=== PATIENT | female | born 1945 | race Caucasian/White ===

== ENCOUNTER 2017-05-18 14:20 | Emergency (ER) | payer OTHER ==
[2017-05-18 14:22] VITALS: BP 183/77; PULSE 70; RESP 24; TEMP 98.4; O2SAT 96
[2017-05-18] MEDS ORDERED: methylPREDNISolone SOD SUCC 125 MG/2 ML VIAL IV PUSH ONE (14:45)
[2017-05-18] MEDS ORDERED: SODIUM CHLORIDE 0.9% FLUSH 10 ML FLUSH IVF PRN (14:45)
--- NOTE | 2017-05-18 14:48 | PD ---
HPI Chief Complaint: Respiratory Distress Time Seen by Provider: 14:43 Travel History International Travel<30 days: No Contact w/Intl Traveler<30days: No Traveled to known affect area: No History of Present Illness HPI 71-year-old female with history of asthma presents for evaluation of wheezing, cough, congestion. Symptoms started 2-3 days ago. The cough is productive with green sputum. Symptoms are only mildly improved with her prescribed Flovent and albuterol inhalers. She reports that she is currently on vacation from [place]. Denies fevers or chills, chest pain, abdominal pain, leg swelling. She has no other complaints at this time. [facility] Past Medical History Asthma: Yes Social History Alcohol Use: No Tobacco Use: No Substance Use: No Allergies-Medications (Allergen,Severity, Reaction): Coded Allergies: aspirin (Verified Allergy, Severe, 05/18/17) Reported Meds & Prescriptions Reported Meds & Active Scripts Active Doxycycline Hyclate 100 Mg Cap 100 Mg PO BID Medrol Dosepak (Methylprednisolone) 4 Mg Dspk 4 Mg PO DIRECTED Per Pharmacist direction Reported Omeprazole 20 Mg Tab 20 Mg PO DAILY Losartan-Hydrochlorothiazide 100-12.5 Mg Tab 1 Tab PO DAILY Citalopram (Citalopram Hydrobromide) 10 Mg Tab 10 Mg PO DAILY Zocor (Simvastatin) 20 Mg Tab 80 Mg PO HS Synthroid (Levothyroxine Sodium) 50 Mcg Tab 50 Mcg PO DAILY Review of Systems Except as stated in HPI: all other systems reviewed are Neg Physical Exam Narrative GENERAL: Well-developed well-nourished female in no acute distress SKIN: Warm and dry. HEAD: Atraumatic. Normocephalic. EYES: Pupils equal and round. No scleral icterus. No injection or drainage. ENT: No nasal bleeding or discharge. Mucous membranes pink and moist. NECK: Trachea midline. No JVD. CARDIOVASCULAR: Regular rate and rhythm. No murmur appreciated. RESPIRATORY: No accessory muscle use. Inspiratory and expiratory wheezing noted bilaterally. GASTROINTESTINAL: Abdomen soft, non-tender, nondistended. Hepatic and splenic margins not palpable. MUSCULOSKELETAL: No obvious deformities. No clubbing. No cyanosis. No edema. NEUROLOGICAL: Awake and alert. No obvious cranial nerve deficits. Motor grossly within normal limits. Normal speech. PSYCHIATRIC: Appropriate mood and affect; insight and judgment normal. Data Data Last Documented VS Vital Signs Date Time Temp Pulse Resp B/P (MAP) Pulse Ox O2 Delivery O2 Flow Rate FiO2 05/18/17 15:40 99 Nasal Cannula 5.00 05/18/17 14:22 98.4 70 24 183/77 (112) Orders Orders Complete Blood Count With Diff (05/18/17 14:43) Basic Metabolic Panel (Bmp) (05/18/17 14:43) Chest, Single Ap (05/18/17 14:43) Sodium Chloride 0.9% Flush (Ns Flush) (05/18/17 14:45) Methylprednisolone So Succ Inj (Solumedr (05/18/17 14:45) Albuterol-Ipratropium Neb (Duoneb Neb) (05/18/17 14:45) Labs Laboratory Tests Test 05/18/17 15:10 White Blood Count 5.1 TH/MM3 Red Blood Count 4.27 MIL/MM3 Hemoglobin 13.4 GM/DL Hematocrit 39.1 % Mean Corpuscular Volume 91.6 FL Mean Corpuscular Hemoglobin 31.4 PG Mean Corpuscular Hemoglobin Concent 34.3 % Red Cell Distribution Width 15.8 % Platelet Count 377 TH/MM3 Mean Platelet Volume 8.5 FL Neutrophils (%) (Auto) 65.0 % Lymphocytes (%) (Auto) 18.8 % Monocytes (%) (Auto) 11.7 % Eosinophils (%) (Auto) 3.1 % Basophils (%) (Auto) 1.4 % Neutrophils # (Auto) 3.3 TH/MM3 Lymphocytes # (Auto) 1.0 TH/MM3 Monocytes # (Auto) 0.6 TH/MM3 Eosinophils # (Auto) 0.2 TH/MM3 Basophils # (Auto) 0.1 TH/MM3 CBC Comment DIFF FINAL Differential Comment Blood Urea Nitrogen 13 MG/DL Creatinine 0.68 MG/DL Random Glucose 92 MG/DL Calcium Level 9.0 MG/DL Sodium Level 141 MEQ/L Potassium Level 4.5 MEQ/L Chloride Level 106 MEQ/L Carbon Dioxide Level 29.9 MEQ/L Anion Gap 5 MEQ/L Estimat Glomerular Filtration Rate 85 ML/MIN MDM Medical Decision Making Medical Screen Exam Complete: Yes Emergency Medical Condition: Yes Medical Record Reviewed: Yes Differential Diagnosis Asthma exacerbation, COPD, pneumothorax, pneumonia, pulmonary embolism Narrative Course 71-year-old female with history of asthma presents with 2 days of productive cough, wheezing, dyspnea. On examination she has inspiratory and expiratory wheezing. The patient will be given DuoNeb therapy, IV Solu-Medrol. On reexamination the patient feels improved. Her chest x-ray and lab work is unremarkable. The patient's examination and history are consistent with asthma exacerbation. She is being discharged with Medrol Dosepak, doxycycline. Discussed signs and symptoms that would warrant returning to the emergency room. She is stable for discharge. Diagnosis Primary Impression: Asthma exacerbation Additional Instructions: Medication as prescribed. Stay well hydrated and well-nourished. Return for any acutely new or worsening symptoms. Med/Other Pt SpecificInfo: Prescription(s) given Scripts Doxycycline Hyclate (Doxycycline Hyclate) 100 Mg Cap 100 MG PO BID for Infection, #20 CAP 0 Refills Prov: Leesa Olmstead MD 05/18/17 Methylprednisolone Dosepak (Medrol Dosepak) 4 Mg Dspk 4 MG PO DIRECTED, #1 DSPK 0 Refills Per Pharmacist direction Prov: Leesa Olmstead MD 05/18/17 Disposition: 01 DISCHARGE HOME Condition: Stable Anup Sanders May 18, 2017 14:48
[2017-05-18] MEDS ORDERED: LEVO.05 PO (15:03)
[2017-05-18] MEDS ORDERED: ZOCO20TA PO (15:03)
[2017-05-18] MEDS ORDERED: LOSA100T3 PO (15:03)
[2017-05-18] MEDS ORDERED: CITA10TA4 PO (15:03)
[2017-05-18] MEDS ORDERED: OMEP20TA93 PO (15:03)
--- NOTE | 2017-05-18 15:19 | RADRPT ---
EXAM DATE/TIME: 05/18/2017 14:47 [facility] COMPARISON: No previous studies available for comparison. INDICATIONS : Short of breath. MEDICAL HISTORY : asthma SURGICAL HISTORY : None. ENCOUNTER: Initial ACUITY: 1 day PAIN SCORE: 0/10 LOCATION: Bilateral chest FINDINGS: A single view of the chest demonstrates the lungs to be symmetrically aerated without evidence of mas s, infiltrate or effusion. The cardiomediastinal contours are unremarkable. Osseous structures are intact. CONCLUSION: No acute disease. Jeremy Briscoe MD on May 18, 2017 at 15:16 Board Certified Radiologist. This report was verified electronically.
[2017-05-18] MEDS: RESP: ALBUTEROL 2.5 MG/IPRATROPIUM 0.5 MG NEB (SCH) INH (15:37)
[2017-05-18 15:40] VITALS: O2SAT 99
[2017-05-18 15:51] LABS: AUTOMATED NEUTROPHIL # 3.3 TH/MM3 (1.8-7.7); BASOPHIL # 0.1 TH/MM3 (0-0.2); BASOPHIL % 1.4 % (0.0-2.0); EOSINOPHIL # 0.2 TH/MM3 (0-0.4); EOSINOPHIL % 3.1 % (0.0-4.0); HEMATOCRIT 39.1 % (35.0-46.0); HEMOGLOBIN 13.4 GM/DL (11.6-15.3); LYMPH % 18.8 % (9.0-44.0); MEAN CELL VOLUME 91.6 FL (80.0-100.0); MEAN CORPUSCULAR HEMOGLOBIN 31.4 PG (27.0-34.0); MEAN CORPUSCULAR HGB CONC 34.3 % (32.0-36.0); MEAN PLATELET VOLUME 8.5 FL (7.0-11.0); MONO % 11.7 % (0.0-8.0); MONOCYTE # 0.6 TH/MM3 (0-0.9); PLATELET COUNT 377 TH/MM3 (150-450); RED BLOOD COUNT 4.27 MIL/MM3 (4.00-5.30); RED CELL DISTRIBUTION WIDTH 15.8 % (11.6-17.2); WHITE BLOOD COUNT 5.1 TH/MM3 (4.0-11.0)
[2017-05-18 15:57] LABS: BICARBONATE 29.9 MEQ/L (21.0-32.0); CREATININE 0.68 MG/DL (0.50-1.00)
[2017-05-18] MEDS ORDERED: MEDR4PAK PO (16:13)
[2017-05-18] MEDS ORDERED: DOXY100C PO (16:13)
[2017-05-18 16:20] VITALS: BP 130/77; TEMP 97.8
== END 2017-05-18 16:20 | disposition home or self-care (01) ==
LOC: NEPE 14:20
DX: J45.901 Unspecified asthma with (acute) exacerbation (principal); Z79.899 Other long term (current) drug therapy
CPT/HCPCS: 71045; 80048; 85025; 94640; 94664; 96374; 99284; J2930

== ENCOUNTER 2017-05-24 10:20 | Emergency (ER) | payer OTHER ==
[~2017-05-24] VITALS: Ht 162.6 cm; Wt 127.0 kg
[2017-05-24 10:20] VITALS: BP 126/84; PULSE 83; RESP 20; TEMP 98.8; O2SAT 94
[~2017-05-24 10:20] MED LIST: CITA10TA4 PO; DOXY100C PO; LEVO.05 PO; LOSA100T3 PO; MEDR4PAK PO; OMEP20TA93 PO; ZOCO20TA PO
[2017-05-24] MEDS ORDERED: ALBU0.63 NEB (13:53)
[2017-05-24] MEDS ORDERED: IPRA0.02 NEB (13:53)
[2017-05-24] MEDS ORDERED: VENTAER INH ×2 (13:53→15:28)
[2017-05-24] MEDS ORDERED: SODIUM CHLORIDE 0.9% FLUSH 10 ML FLUSH IVF PRN (14:30)
[2017-05-24 14:42] VITALS: O2SAT 97
[2017-05-24] MEDS: RESP: ALBUTEROL 2.5 MG/3 ML NEB (SCH) INH (14:42)
[2017-05-24 15:07] VITALS: BP 143/61; PULSE 71; RESP 16; O2SAT 95
[2017-05-24] MEDS ORDERED: ALBU1.25 NEB (15:28)
--- NOTE | 2017-05-24 15:28 | PD ---
HPI Chief Complaint: Medication Refill Request Time Seen by Provider: 14:16 Travel History International Travel<30 days: No Contact w/Intl Traveler<30days: No Traveled to known affect area: No History of Present Illness HPI 71-year-old female came to the emergency room with history of cough and wheezing in mainly because she ran out of her albuterol. Patient is visiting from [facility] and does not have any primary care here. She was actually seen in the emergency room on the fourth of this month when she was given prescription for albuterol. Patient says she ran out of the medication. No history of fever or chills. She does have history of COPD. She is not a smoker. Vital signs were within acceptable limits. Oxygen saturation was 94% on room air. She does not require oxygen at home. [facility] Past Medical History Narrative Medical List of her past medical, surgical, social and family history is reviewed from the nursing note. Asthma: Yes Cardiovascular Problems: Yes High Cholesterol: Yes Diminished Hearing: No Hypertension: Yes Respiratory: Yes Immunizations Current: No Tetanus Vaccination: < 5 Years Influenza Vaccination: Yes ?: Not Menopausal: Yes : 4 Para: 4 Past Surgical History Appendectomy: Yes Other Surgery: Yes (left breast ca) Social History Alcohol Use: No Tobacco Use: No Substance Use: No Allergies-Medications (Allergen,Severity, Reaction): Coded Allergies: aspirin (Verified Allergy, Severe, 05/24/17) Comments List of her allergies reviewed from the nursing note. Reported Meds & Prescriptions Reported Meds & Active Scripts Active Albuterol Neb (Albuterol Sulfate) 1.25 Mg/3 Ml Neb 1.25 Mg NEB Q6HR NEB PRN Ventolin Hfa 18 GM Inh (Albuterol Sulfate) 90 Mcg/Act Aer 2 Puff INH Q4-6H PRN Doxycycline Hyclate 100 Mg Cap 100 Mg PO BID Reported Ipratropium Neb (Ipratropium [place]) 0.5 Mg/2.5 Ml Amp 0.5 Mg NEB Q6HR NEB Albuterol Neb (Albuterol Sulfate) 0.63 Mg/3 Ml Neb 0.63 Mg NEB Q4HR NEB PRN Ventolin Hfa 18 GM Inh (Albuterol Sulfate) 90 Mcg/Act Aer 2 Puff INH Q4-6H PRN Omeprazole 20 Mg Tab 20 Mg PO DAILY Losartan-Hydrochlorothiazide 100-12.5 Mg Tab 1 Tab PO DAILY Citalopram (Citalopram Hydrobromide) 10 Mg Tab 10 Mg PO DAILY Zocor (Simvastatin) 20 Mg Tab 80 Mg PO HS Synthroid (Levothyroxine Sodium) 50 Mcg Tab 50 Mcg PO DAILY Narrative Medication List of her home medications reviewed from the nursing note. Review of Systems Except as stated in HPI: all other systems reviewed are Neg Respiratory: Positive: Wheezing Physical Exam Narrative GENERAL: Awake, alert, mild distress SKIN: Focused skin assessment warm/dry. HEAD: Atraumatic. Normocephalic. EYES: Pupils equal and round. No scleral icterus. No injection or drainage. ENT: No nasal bleeding or discharge. Mucous membranes pink and moist. NECK: Trachea midline. No JVD. CARDIOVASCULAR: Regular rate and rhythm. No murmur appreciated. RESPIRATORY: No accessory muscle use. End expiratory wheeze GASTROINTESTINAL: Abdomen soft, non-tender, nondistended. Hepatic and splenic margins not palpable. MUSCULOSKELETAL: No obvious deformities. No clubbing. No cyanosis. No edema. NEUROLOGICAL: Awake and alert. No obvious cranial nerve deficits. Motor grossly within normal limits. Normal speech. PSYCHIATRIC: Appropriate mood and affect; insight and judgment normal. Data Data Last Documented VS Vital Signs Date Time Temp Pulse Resp B/P (MAP) Pulse Ox O2 Delivery O2 Flow Rate FiO2 05/24/17 16:28 05/24/17 16:15 76 18 98 Room Air 05/24/17 14:42 21 05/24/17 10:20 98.8 Orders Orders Ecg Monitoring (05/24/17 14:19) Iv Access Insert/Monitor (05/24/17 14:19) Oximetry (05/24/17 14:19) Oxygen Administration (05/24/17 14:19) Albuterol Neb (Albuterol Neb) (05/24/17 14:30) Sodium Chloride 0.9% Flush (Ns Flush) (05/24/17 14:30) Ed Discharge Order (05/24/17 15:28) Albuterol-Ipratropium Neb (Duoneb Neb) (05/24/17 15:45) MDM Medical Decision Making Medical Screen Exam Complete: Yes Emergency Medical Condition: Yes Medical Record Reviewed: Yes Differential Diagnosis COPD exacerbation Narrative Course 3:26 PM patient had a workup done on May 18 when she was here including a chest x-ray. Not repeating all that. Patient did get 2 albuterol nebulizers. I'm comfortable discharging her home with prescriptions. Procedures EKG Prior to Arrival: No Diagnosis Primary Impression: Acute exacerbation of chronic obstructive pulmonary disease (COPD) Referrals: Primary Care Physician Additional Instructions: He must call your primary care and future for prescription refills. Your primary care should be able to call to the pharmacy for the refills. Return to the ER if condition worsens or any other new concerns. Med/Other Pt SpecificInfo: Prescription(s) given Scripts Albuterol Neb (Albuterol Neb) 1.25 Mg/3 Ml Neb 1.25 MG NEB Q6HR NEB Y for SHORTNESS OF BREATH, #50 NEBULE 0 Refills Prov: Raymond Martines MD 05/24/17 Albuterol 18 GM Inh (Ventolin Hfa 18 GM Inh) 90 Mcg/Act Aer 2 PUFF INH Q4-6H Y for SHORTNESS OF BREATH, #1 INHALER 0 Refills Prov: Raymond Martines MD 05/24/17 Disposition: 01 DISCHARGE HOME Condition: Stable Raymond Martines MD May 24, 2017 15:28
[2017-05-24 15:35] VITALS: BP_SYST 134; BP_SYST 154; BP_DIAS 75; PULSE 75; RESP 20; O2SAT 97
[2017-05-24] MEDS ORDERED: RESP: ALBUTEROL 2.5 MG/IPRATROPIUM 0.5 MG NEB (SCH) INH ONE (15:45)
[2017-05-24 16:15] VITALS: BP 130/72; PULSE 76; RESP 18; O2SAT 98
== END 2017-05-24 16:31 | disposition home or self-care (01) ==
LOC: NEPD 10:20
DX: J44.1 Chronic obstructive pulmonary disease with (acute) exacerbation (principal); I10 Essential (primary) hypertension
CPT/HCPCS: 94664; 99284; J7613